=== PATIENT | female | born 1985 | race Caucasian/White ===

== ENCOUNTER 2016-08-31 09:12 | Inpatient (IN) | payer MEDICAID ==
[~2016-08-31] VITALS: Ht 160 cm; Wt 67.4 kg
[2016-08-31] MEDS ORDERED: LACTATED RINGER'S 1,000 ML IV SCH ×2 (09:56→11:51)
[2016-08-31 09:57] VITALS: Ht 160 cm; Wt 67.4 kg
[2016-08-31 09:58] VITALS: BP 113/64; PULSE 66; RESP 20
--- NOTE | 2016-08-31 10:32 | RADRPT ---
PROCEDURE: OB ultrasound for biophysical profile CLINICAL INDICATION: Contractions TECHNIQUE: Multiple sonographic images of the pelvis were obtained. Transabdominal views of the g ravid uterus are available for review. The images were reviewed on a PACS workstation. COMPARISON: None FINDINGS: breathing movement = 2/2 tone = 2/2 motion = 2/2 NICK = 2/2 NICK = 11.0 cm Single live intrauterine with cardiac activity of 146 bpm. position is cephal ic. The placenta is anterior. IMPRESSION: 1. Single live intrauterine gestation. 2. Biophysical profile = 8. 3. NICK = 11.0 cm. RPTAT: HH .Opal Navarrete MD, MD Date Time Electronically viewed and signed by .Opal Navarrete MD, on 08/31/2016 10:32 .G/
[2016-08-31] MEDS ORDERED: MAGNESIUM SULFATE 20 GM/500 ML 500 ML IV SCH (10:56)
[2016-08-31] MEDS ORDERED: ONDANSETRON 4 MG INJ IV PRN (11:00)
[2016-08-31] MEDS ORDERED: MAGNESIUM SULFATE 4 GM/100 ML 100 ML IV ONE (11:00)
[2016-08-31] MEDS ORDERED: ACETAMINOPHEN 325 MG TAB PO PRN ×2 (11:00→15:00)
[2016-08-31] MEDS ORDERED: BETAMET NA PHOS/AC(6 MG/ML) 5ML INJ IM SCH ×2 (11:00)
[2016-08-31] MEDS ORDERED: AMPICILLIN 2 GM/NS (PMX) 100 ML IV ONE (11:00)
[2016-08-31] MEDS ORDERED: BUTORPHANOL 2 MG INJ IV PRN ×2 (11:30)
[2016-08-31 11:40] LABS: ADD SCAN DIFF NO
--- NOTE | 2016-08-31 11:43 | TRIAGE ---
OB Triage Datetime Report Generated by CPN: 08/31/2016 11:42 Datetime: 08/31/2016 11:08 Stage of : Antepartum Labor Evaluation Frequency: 3-4 Monitor Mode: External Duration (sec)2399: 50-90 Quality: Strong Pattern: Normal: <= 5 Contractions in 10 Minutes Resting Tone [place]: Relaxed Heart Rate FHR Baseline Rate: 145 Monitor Mode: External US Variability: Moderate 6-25 bpm Accelerations: 15X15 Decelerations: None Category: Category I Comments: NST REACTIVE FOR GESTATIONAL AGE Datetime: 08/31/2016 10:38 Vaginal Exam Dilatation (cms): 2.5 Effacement (%): 80 Station: -1 Exam By: [email or web address] Vaginal Bleeding: Normal Show Cervix, Consistency: Soft Datetime: 08/31/2016 09:43 Labor Evaluation Frequency: 3 Monitor Mode: External Duration (sec)2399: 50-80 Quality: Moderate Pattern: Normal: <= 5 Contractions in 10 Minutes Resting Tone [place]: Relaxed Heart Rate FHR Baseline Rate: 135 Monitor Mode: External US Variability: Moderate 6-25 bpm Accelerations: 15X15 Decelerations: None Category: Category I Datetime: 08/31/2016 09:28 Maternal Assessment Level of Consciousness: Fully Conscious DTR's/Clonus: DTRs 2+; No Clonus Headache: Denies Blurred Vision: No Respiratory Effort: Unlabored; Regular Rhythm; Equal Expansion Breath Sounds, Left: Clear and Equal Breath Sounds, Right: Clear and Equal Nausea/Vomiting: Denies RUQ Epigastric Pain: Denies Facial Edema: None Fall Risk Assessment History of Falling: (0) No Secondary Diagnosis: (0) No Ambulatory Aid: (0) Bedrest/Nurse Assist IV Therapy: (0) No Gait: (0) Normal/Bedrest/Immobile Mental Status: (0) Oriented to Own Ability Fall Score: 0 Fall Risk Score Definition: No Risk: No action required Datetime: 08/31/2016 09:27 Stage of : OB Triage Maternal Assessment Level of Consciousness: Fully Conscious DTR's/Clonus: DTRs 2+; No Clonus Headache: Denies Blurred Vision: No Respiratory Effort: Unlabored; Regular Rhythm; Equal Expansion Breath Sounds, Left: Clear and Equal Breath Sounds, Right: Clear and Equal Nausea/Vomiting: Denies RUQ Epigastric Pain: Denies Lower Extremities Edema: None Degree: None Upper Extremities Edema: None Degree: None Facial Edema: None Temperature Route: Axillary Fall Risk Assessment History of Falling: (0) No Secondary Diagnosis: (0) No Ambulatory Aid: (0) Bedrest/Nurse Assist IV Therapy: (0) No Gait: (0) Normal/Bedrest/Immobile Mental Status: (0) Oriented to Own Ability Fall Score: 0 Fall Risk Score Definition: No Risk: No action required Datetime: 08/31/2016 09:26 Time of Arrival: 08/31/2016 09:10 EGA: 34.1 Arrived By: Ambulatory Arrived From: Home Chief Complaint: UC'S SINCE 0800 Movement: Present Contractions: Regular Time Contractions Began: 08/31/2016 08:00 Contractions: 2-3 Rupture of Membranes: Denies Vaginal Bleeding: None Vaginal Discharge: Denies Recent Sexual Intercouse: Denies Abdominal Trauma: Not Applicable Patient Complaints: Contractions Time Provider Notified: 08/31/2016 09:53 Provider Notified: DR. CRUZ Initial Plan: NST AND CALL
[2016-08-31 11:46] LABS: BASOPHILS % 0.2 % (0.0-2.0); EOSINOPHILS # 0.1 10^3/ul (0.0-0.5); EOSINOPHILS % 0.5 % (0.0-7.0); HEMATOCRIT 35.9 % (37.0-47.0); HEMOGLOBIN 12.2 g/dl (12.0-16.0); LYMPHOCYTES # 1.3 10^3/ul (0.8-2.9); LYMPHOCYTES % 13.5 % (15.0-51.0); MEAN CORPUSCULAR HEMOGLOBIN 30.7 pg (29.0-33.0); MEAN CORPUSCULAR VOLUME 90.2 fl (82.0-101.0); MEAN PLATELET VOLUME 12.3 fl (7.4-10.4); MONOCYTE # 0.6 10^3/ul (0.3-0.9); MONOCYTES % 5.7 % (0.0-11.0); NEUTROPHIL # 7.7 10^3/ul (1.6-7.5); NEUTROPHILS % 79.6 % (39.0-77.0); PLATELET COUNT 147 10^3/UL (140-415); RED BLOOD COUNT 3.98 10^6/ul (4.20-5.40); RED CELL DISTRIBUTION WIDTH 12.7 % (11.5-14.5); WHITE BLOOD COUNT 9.6 10^3/ul (4.8-10.8)
[2016-08-31] MEDS ORDERED: LIDOCAINE 1% (MPF) 30 ML INJ ONE (11:55)
[2016-08-31] MEDS ORDERED: OXYTOCIN 30 UNITS/LR 500 ML IV SCH ×2 (12:00)
[2016-08-31] MEDS ORDERED: METHYLERGONOVINE 0.2 MG INJ IM PRN ×2 (12:00→15:00)
[2016-08-31] MEDS ORDERED: OXYTOCIN 30 UNITS/LR 500 ML IV PRN ×2 (12:00→15:00)
[2016-08-31] MEDS ORDERED: MISOPROSTOL 200 MCG TAB PR PRN ×2 (12:00→15:00)
[2016-08-31] MEDS ORDERED: LIDOCAINE 1% (MPF) 30 ML INJ INJ PRN (12:00)
[2016-08-31] MEDS ORDERED: CARBOPROST 250 MCG INJ IM PRN ×2 (12:00→15:00)
[2016-08-31] MEDS ORDERED: IBUPROFEN 600 MG TAB PO PRN (12:00)
[2016-08-31] MEDS ORDERED: PRENAT PO (12:22)
--- NOTE | 2016-08-31 12:25 | QN ---
Documentation Comment 31 years old with IUP at 34 weeks and 1 day with care with Dr. Rivero. presented with contractions in triage. She was initally 3 cm and rapidly progresssed to 8 cm and 100 % when I was called. I was called to evaluate since the nursing staff felt a soft area at the cevix . Questionable for placenta Attended to patient's bedside. Complaining of contractions and pain. Declined IV pain medication quick bedside ultrasound performed. Vertex presentation. Placenta fundal anterior. Speculum examination: Bulging bag of water noted. No clear evidence of placenta noted. exam 8/100%./0 NST: Category [address] Dr. ary peters primary glazier artist is on her way. Patient received a dose of steroid Due to advanced cervical dilatation magnesium that was a started stopped. Ampicillin started immediately., NICU was notified. records reviewed. Dating good by LMP consistent with 30 weeks ultrasound. Patient had good care. There is no Antepartum complication. Anticipate Primary glazier artist it is on her way to perform the delivery We will continue to standby EMILIA CEBALLOS MD Aug 31, 2016 12:25
[2016-08-31 12:30] LABS: INR 0.9; PARTIAL THROMBOPLASTIN TIME 26.7 Sec (25.0-35.0); PROTIME 12.1 Sec (12.2-14.2); PT RATIO 0.9
--- NOTE | 2016-08-31 12:44 | HP ---
Date/Time of Note Date/Time of Note DATE: 08/31/16 TIME: 12:40 OB - History Hx of Present Chief Complaint: contractions Estimated Due Date: Oct 11, 2016 : 3 Para: 1 Spontaneous : 1 Therapeutic : 1 Care: Good Care Ultrasounds: Normal mid trimester US Obstetrical Complications: None Medical Complications: None Past Family/Social History * Past Medical, Surgical, Family and Obstetric Histories reviewed from chart. GBS Status: Unknown OB Admission Exam Vital Signs Vital Signs Vital Signs Date Time Temp Pulse Resp B/P Pulse Ox O2 Delivery O2 Flow Rate FiO2 08/31/16 09:58 97.8 66 20 113/64 99 Room Air Physical Exam HEENT: WNL Heart: Rhythm Normal Lungs: Clear Abdomen: WNL Extremities: Normal Cervical Dilatation: 3cm Effacement: 75% Station: -1 Membranes: Intact Heart Rate: 130's Accelerations: Accelerations Present Decelerations: No Decelerations Varibility: Moderate Last 72 hours Lab Results CBC & BMP 08/31/16 10:45 OB Assessment/Plan Reason for admission: labor Plan: Other (Admit, tocolysis with magnesium sulfate attewpted, however, patient progressed rapidly. Expect .) JIL CRUZ MD Aug 31, 2016 12:44
--- NOTE | 2016-08-31 12:47 | LDN ---
Date/Time of Note Date/Time of Note DATE: 08/31/16 TIME: 12:45 Delivery Summary Weeks of Gestation 34 weeks and 1 day Placenta Delivered: Spontaneously Meconium: none Episiotomy: No Perineal laceration: 0 Anesthesia type: None Estimated blood loss: 100 Sponge & Needle done & correct: Yes All needle counts correct: Yes Any foreign bodies felt in the: No Problems: Infant Delivery Information Sex Infant Sex: male Apgars 1 Minute: 9 5 Minute: 9 Suctioning Nose & mouth suctioned at [place]: Yes Delee suction performed: No Umbilical Cord Cord presentations: no nuchal cord Cord Blood was obtained: Yes Mother & Baby Disposition Disposition Mom transferred to: Other () Baby to NICU: Yes JIL CRUZ MD Aug 31, 2016 12:47
[2016-08-31 13:55] VITALS: BP 107/59; PULSE 70; RESP 18
[2016-08-31 14:33] LABS: ADD UMIC YES; UR ASCORBIC ACID NEGATIVE (NEGATIVE); UR BILIRUBIN (Dip) NEGATIVE (NEGATIVE); UR BLOOD (Dip) NEGATIVE (NEGATIVE); UR CLARITY SLIGHTLY CLOUDY (CLEAR); UR COLOR YELLOW (YELLOW); UR GLUCOSE (Dip) NEGATIVE (NEGATIVE); UR KETONES (Dip) NEGATIVE (NEGATIVE); UR LEUKOCYTE ESTERASE (Dip) 2+ Leu/ul (NEGATIVE); UR NITRITE (Dip) NEGATIVE (NEGATIVE); UR RBC 0 /HPF (0-5); UR SPECIFIC GRAVITY (Dip) 1.011 (1.003-1.030); UR SQUAMOUS EPITHELIAL CELL MODERATE /HPF (FEW); UR TOTAL PROTEIN (Dip) NEGATIVE (NEGATIVE); UR UROBILINOGEN (Dip) NEGATIVE (NEGATIVE)
[2016-08-31] MEDS ORDERED: LACTATED RINGER'S 1,000 ML IV* SCH (14:41)
[2016-08-31 14:59] LABS: BARBITURATES Negative (NEGATIVE); BENZODIAZEPINES Negative (NEGATIVE); CANNABINOIDS Negative (NEGATIVE); COCAINE Negative (NEGATIVE); OPIATES Negative (NEGATIVE)
[2016-08-31] MEDS ORDERED: BENZOCAINE 20% 56 ML SPRAY TOP PRN (15:00)
[2016-08-31] MEDS ORDERED: WITCH HAZEL/GLYCERIN PAD PR PRN (15:00)
[2016-08-31] MEDS ORDERED: AMPICILLIN 1 GM/NS (PMX) 50 ML IV SCH (15:00)
[2016-08-31] MEDS ORDERED: DIBUCAINE 1% 30 GM OINT PR PRN (15:00)
[2016-08-31] MEDS ORDERED: ACETAMINOPHEN/CODEINE #3 TAB PO PRN (15:00)
[2016-08-31] MEDS: LACTATED RINGER'S 1,000 ML IV SCH ×2 (16:34→18:56)
[2016-08-31 16:35] VITALS: BP 109/65; PULSE 75; RESP 18
[2016-08-31] MEDS: IBUPROFEN 600 MG TAB PO SCH ×2 (16:47→23:04)
[2016-08-31] MEDS ORDERED: IBUPROFEN 600 MG TAB PO SCH (18:00)
[2016-08-31 20:00] VITALS: BP 113/66; PULSE 70; RESP 18
[2016-08-31] MEDS: SENNA/DOCUSATE NA (8.6MG/50MG) TAB PO SCH (21:32)
[2016-09-01 00:03] VITALS: BP 106/64; PULSE 68; RESP 17
[2016-09-01 04:00] VITALS: BP 90/55; PULSE 74; RESP 16
[2016-09-01] MEDS: IBUPROFEN 600 MG TAB PO SCH ×4 (05:36→23:42)
[2016-09-01 07:58] LABS: ADD SCAN DIFF NO
[2016-09-01 08:15] LABS: BASOPHILS % 0.2 % (0.0-2.0); EOSINOPHILS % 0.1 % (0.0-7.0); HEMATOCRIT 30.8 % (37.0-47.0); HEMOGLOBIN 10.3 g/dl (12.0-16.0); LYMPHOCYTES # 1.3 10^3/ul (0.8-2.9); LYMPHOCYTES % 7.1 % (15.0-51.0); MEAN CORPUSCULAR HEMOGLOBIN 30.3 pg (29.0-33.0); MEAN CORPUSCULAR HGB CONC 33.4 g/dl (32.0-37.0); MEAN CORPUSCULAR VOLUME 90.6 fl (82.0-101.0); MEAN PLATELET VOLUME 11.7 fl (7.4-10.4); MONOCYTE # 0.9 10^3/ul (0.3-0.9); NEUTROPHIL # 15.6 10^3/ul (1.6-7.5); NEUTROPHILS % 87.2 % (39.0-77.0); PLATELET COUNT 137 10^3/UL (140-415); RED CELL DISTRIBUTION WIDTH 12.9 % (11.5-14.5); WHITE BLOOD COUNT 17.9 10^3/ul (4.8-10.8)
[2016-09-01 08:40] VITALS: BP 103/59; PULSE 18; RESP 18
[2016-09-01] MEDS ORDERED: MULTIVIT/MIN/FOLATE/IRON/PREN TAB PO SCH (09:00)
[2016-09-01] MEDS ORDERED: FERROUS SULFATE (EC) 325 MG TAB PO SCH (09:00)
[2016-09-01] MEDS: SENNA/DOCUSATE NA (8.6MG/50MG) TAB PO SCH ×2 (09:05→23:42)
[2016-09-01 16:05] VITALS: BP 102/57; PULSE 66; RESP 14
--- NOTE | 2016-09-01 19:12 | QN ---
Documentation Comment No complaint Afebrile VSS Fundus Firm Lochia scant PPD #1 Stable Continue present care. JIL CRUZ MD Sep 01, 2016 19:12
[2016-09-01 20:48] VITALS: BP 103/61; PULSE 74; RESP 74
[2016-09-02 04:20] VITALS: BP 105/69; PULSE 65; RESP 19
[2016-09-02] MEDS: IBUPROFEN 600 MG TAB PO SCH ×3 (05:47→17:48)
[2016-09-02 07:59] LABS: ADD SCAN DIFF NO
[2016-09-02 08:00] VITALS: BP 118/77; PULSE 77; RESP 18
[2016-09-02 08:06] LABS: BASOPHILS % 0.3 % (0.0-2.0); EOSINOPHILS # 0.2 10^3/ul (0.0-0.5); EOSINOPHILS % 1.3 % (0.0-7.0); HEMATOCRIT 30.8 % (37.0-47.0); LYMPHOCYTES % 16.6 % (15.0-51.0); MEAN CORPUSCULAR HEMOGLOBIN 29.7 pg (29.0-33.0); MEAN CORPUSCULAR HGB CONC 32.5 g/dl (32.0-37.0); MEAN CORPUSCULAR VOLUME 91.4 fl (82.0-101.0); MEAN PLATELET VOLUME 11.8 fl (7.4-10.4); MONOCYTE # 0.7 10^3/ul (0.3-0.9); MONOCYTES % 5.5 % (0.0-11.0); NEUTROPHIL # 9.1 10^3/ul (1.6-7.5); NEUTROPHILS % 75.5 % (39.0-77.0); PLATELET COUNT 139 10^3/UL (140-415); RED BLOOD COUNT 3.37 10^6/ul (4.20-5.40); RED CELL DISTRIBUTION WIDTH 13.1 % (11.5-14.5)
[2016-09-02] MEDS: SENNA/DOCUSATE NA (8.6MG/50MG) TAB PO SCH (08:19)
[2016-09-02] MEDS ORDERED: DIPHTH/TET/ACEL PERTUSS (ADULT) 0.5 ML VIAL IM* ONE (09:00)
[2016-09-02 16:00] VITALS: BP 99/62; PULSE 56; RESP 18
--- NOTE | 2016-09-02 19:56 | DS ---
Date/Time of Note Date/Time of Note DATE: 09/02/16 TIME: 19:55 Obstetrical Discharge Record Final Diagnosis Final Diagnosis: delivered Vaginal Delivery Obstetrical Delivery: Spontaneous Complications Labor Tocolytics: Magnesium Sulfate Condition on Discharge Physical Assessment Voiding: Yes Bowel Movement: Yes Breast: Soft, non-tender Fundus: Firm Calf Tenderness: No Patient Condition: Stable JIL CRUZ MD Sep 02, 2016 19:56
== END 2016-09-02 20:35 | disposition home or self-care (01) | DRG 775 ==
LOC: OBT 09:12 → L-D 09:12 → OBG 10:45 → OBT 10:45 → L-D 11:11 → PP1 14:00 → UNDODISIN 09-02 19:30
PROVIDERS: ADMIT Obstetrics & Gynecology; ATTEND Obstetrics & Gynecology
PROC: 10E0XZZ Delivery of Products of Conception, External Approach (ICD-10-PCS; principal; 2016-08-31)
DX: O60.14X0 Preterm labor third trimester with preterm delivery third trimester, not applicable or unspecified (principal); Z37.0 Single live birth; Z3A.34 34 weeks gestation of pregnancy
CPT/HCPCS: 36415; 76818; 80307; 81001; 85025; 85610; 85730; 86592; 86900; 86901; 87086; 87340; 88307; 90715; 99464; G0463; J0290; J0595; J0702; J2590; J3475; J7120

== ENCOUNTER 2018-04-30 12:31 | Inpatient (IN) | payer MEDICAID ==
[~2018-04-30] VITALS: Ht 160 cm; Wt 73.0 kg
[~2018-04-30 12:31] MED LIST: PRENAT PO
[2018-04-30 13:00] VITALS: Ht 160 cm; Wt 73.0 kg
[2018-04-30] MEDS ORDERED: LIDOCAINE 1% (MPF) 30 ML INJ INJ PRN (13:00)
[2018-04-30] MEDS ORDERED: CARBOPROST 250 MCG INJ IM PRN (13:00)
[2018-04-30] MEDS ORDERED: BUTORPHANOL 2 MG INJ IV PRN (13:00)
[2018-04-30] MEDS ORDERED: OXYTOCIN 30 UNITS/LR 500 ML IV SCH ×2 (13:00)
[2018-04-30] MEDS ORDERED: IBUPROFEN 600 MG TAB PO PRN (13:00)
[2018-04-30] MEDS ORDERED: MISOPROSTOL 200 MCG TAB PR PRN (13:00)
[2018-04-30] MEDS ORDERED: METHYLERGONOVINE 0.2 MG INJ IM PRN (13:00)
[2018-04-30] MEDS ORDERED: OXYTOCIN 30 UNITS/LR 500 ML IV PRN (13:00)
[2018-04-30] MEDS: LACTATED RINGER'S 1,000 ML IV SCH ×2 (13:24→20:50)
[2018-04-30] MEDS ORDERED: GUAIFENESIN/DM 5ML CUP PO PRN ×2 (15:30→18:00)
[2018-04-30] MEDS: DEXTROSE 5%-LR 1,000 ML IV SCH (17:25)
--- NOTE | 2018-04-30 18:46 | HP ---
Date/Time of Note Date/Time of Note DATE: 04/30/18 TIME: 18:41 OB - History Hx of Present Chief Complaint: referred from NST Estimated Due Date: May 15, 2018 : 4 Para: 2 Spontaneous : 1 Therapeutic : 0 Care: Good Care Ultrasounds: Normal mid trimester US Obstetrical Complications: Gestational Diabetes Past Family/Social History * Past Medical, Surgical, Family and Obstetric Histories reviewed from chart. GBS Status: Negative OB Admission Exam Physical Exam HEENT: WNL Heart: Rhythm Normal Lungs: Clear, Equal Abdomen: WNL Extremities: Normal Reflexes: Normal Cervical Dilatation: 3cm Effacement: 75% Station: -1 Membranes: Intact Heart Rate: 120's Accelerations: Accelerations Present Decelerations: Variable Decelerations Varibility: Moderate Last 72 hourBlood Glucose Bedside Glucose - 72 Hours Test 04/30/18 17:28 Bedside Glucose 90 mg/dL (70-220) Last 72 hours Lab Results CBC & BMP 04/30/18 13:00 OB Assessment/Plan Other Assessment: Early labor heart deceleration noted in NST clinic Plan: Expectant Management JIL CRUZ MD Apr 30, 2018 18:46
[2018-05-01] MEDS: LACTATED RINGER'S 1,000 ML IV SCH ×2 (00:12→10:21)
[2018-05-01] MEDS ORDERED: FENTAnyl 2MCG/ML-ROPIV 0.2% 100 ML ONE (01:01)
--- NOTE | 2018-05-01 01:31 | PREAC ---
Date/Time of Note Date/Time of Note DATE: 05/01/18 TIME: 01:30 Anesthesia Eval and Record Evaluation Time Pre-Procedure Interview DATE: 05/01/18 TIME: 01:30 Age 32 Sex female NPO: 8 hrs Preoperative diagnosis Labor Pain Planned procedure Labor Epidural Past Medical History Past Medical History: Includes Heme: Anemia : : (1), Para: (0), Gestational age: (38) Surgery & Anesthesia Issues No known issue Meds Anticoagulation: No Beta Janice within 24 hr: No Reason Beta Janice not given: Pt. not on B-Janice Reported Medications Multivit/Min/Fol Ac/Iron/Pren* ( S*) 1 Tab Tab, 1 TAB PO DAILY, TAB 08/31/16 Current Medications Lactated Ringer's 1,000 ml @ 125 mls/hr Q8H IV Last administered on 05/01/18at 00:12; Admin Dose 125 MLS/HR; Start 04/30/18 at 12:50 Butorphanol Tartrate (Stadol) 2 mg Q2H PRN IV .PAIN; Start 04/30/18 at 13:00 Lidocaine (Xylocaine 1% (Mpf)) 30 ml ONCE PRN INJ .EPISIOTOMY; Start 04/30/18 at 13:00 Oxytocin/Lactated Ringer's 500 ml @ 500 mls/hr ONCE POST IV ; Start 04/30/18 at 13:00 Oxytocin/Lactated Ringer's 500 ml @ 125 mls/hr POST IV ; Start 04/30/18 at 13:00 Ibuprofen (Motrin) 600 mg ONCE PRN PO .PAIN 1-5; Start 04/30/18 at 13:00 Oxytocin/Lactated Ringer's 500 ml @ 0 mls/hr ONCE PRN IV .VAGINAL BLEEDING; Start 04/30/18 at 13:00 Methylergonovine Maleate (Methergine) 0.2 mg ONCE PRN IM .VAGINAL BLEEDING; Start 04/30/18 at 13:00 Carboprost Tromethamine (Hemabate) 250 mcg ONCE PRN IM .VAGINAL BLEEDING; Start 04/30/18 at 13:00 Misoprostol (Cytotec) 1,000 mcg ONCE PRN VA .VAGINAL BLEEDING; Start 04/30/18 at 13:00 Guaifenesin/ Dextromethorphan (Robitussin Dm Liquid Cup) 10 ml Q4H PRN PO COUGH; Start 04/30/18 at 15:30 Dextrose/Lactated Ringer's 1,000 ml @ 125 mls/hr Q8H IV Last administered on 04/30/18at 17:25; Admin Dose 125 MLS/HR; Start 04/30/18 at 16:00 Guaifenesin/ Dextromethorphan (Robitussin Dm Liquid Cup) 10 ml Q4H PRN PO COUGH; Start 04/30/18 at 18:00 Meds reviewed: Yes Allergies Coded Allergies: No Known Allergy (Unverified , 11/03/12) Allergies Reviewed: Yes Labs/Studies Labs Reviewed: Reviewed by anesthesiologist Result Diagram: 04/30/18 1300 04/30/18 1300 Laboratory Tests 04/30/18 13:00 Blood Bank Test 04/30/18 13:00 Antibody Screen NEGATIVE Blood Type A POSITIVE Rh Immune Globulin Candidate NO test: Positive Studies: ECG (n/a), CXR (n/a) Pre-procedure Exam Airway: Adequate mouth opening, Adequate thyromental dist Mallampati: Mallampati II Teeth: Normal Lung: Normal Heart: Normal ASA Physical Status ASA physical status: 2 Emergency: None Planned Anesthetic Neuraxial: Epidural Planned Pain Management Epidural Pre-operative Attestations Prior to commencing anesthesia and surgery, the patient was re-evaluated, there was verification of: *The patient's identity *The results of appropriate recent lab work and preoperative vital signs *The above evaluation not changing prior to induction *Anesthetic plan, risk benefits, alternative and complications discussed with patient/family; questions answered; patient/family understands, accepts and wishes to proceed. ENRICO LANDA MD May 01, 2018 01:31
--- NOTE | 2018-05-01 01:33 | PAC ---
Date/Time of Note Date/Time of Note DATE: 05/01/18 TIME: 01:32 Post-Anesthesia Notes Post-Anesthesia Note Last documented vital signs T:98.1 Activity: WNL Respiratory function: WNL Cardiovascular function: WNL Mental status: Baseline Pain reasonably controlled: Yes Hydration appropriate: Yes Nausea/Vomiting absent: Yes ENRICO LANDA MD May 01, 2018 01:33
[2018-05-01] MEDS ORDERED: NALOXONE (0.4 MG/ML) INJ IV PRN (02:00)
[2018-05-01] MEDS: FENTAnyl 2MCG/ML-ROPIV 0.2% 100 ML BAG EPI SCH ×2 (02:06→10:23)
[2018-05-01] MEDS: DEXTROSE 5%-LR 1,000 ML IV SCH ×3 (07:21→17:30)
[2018-05-01] MEDS ORDERED: OXYTOCIN 30 UNITS/LR 500 ML IV SCH (12:00)
--- NOTE | 2018-05-01 17:48 | LDN ---
Date/Time of Note Date/Time of Note DATE: 05/01/18 TIME: 17:46 Delivery Summary Weeks of Gestation 38 weeks Placenta Delivered: Spontaneously Meconium: none Episiotomy: No Anesthesia type: Epidural Estimated blood loss: 200 Sponge & Needle done & correct: Yes All needle counts correct: Yes Any foreign bodies felt in the: No Delivery Information Sex Infant Sex: female Apgars 1 Minute: 9 5 Minute: 9 Suctioning Nose & mouth suctioned at [place]: No Delee suction performed: No Umbilical Cord Umbilical cord with: 3 Vessels Cord presentations: nuchal cord Nuchal cord present X: 1 Cord Blood was obtained: Yes Mother & Baby Disposition Disposition Mom & Baby to Maternity; Good: Yes JIL CRUZ MD May 01, 2018 17:48
[2018-05-01 20:20] VITALS: BP 124/67; PULSE 81; RESP 18
[2018-05-01] MEDS: LACTATED RINGER'S 1,000 ML IV* SCH (21:05)
[2018-05-01] MEDS ORDERED: METHYLERGONOVINE 0.2 MG INJ IM PRN (21:30)
[2018-05-01] MEDS ORDERED: OXYTOCIN 30 UNITS/LR 500 ML IV PRN (21:30)
[2018-05-01] MEDS ORDERED: BENZOCAINE 20% 56 ML SPRAY TOP PRN (21:30)
[2018-05-01] MEDS ORDERED: CARBOPROST 250 MCG INJ IM PRN (21:30)
[2018-05-01] MEDS ORDERED: DIBUCAINE 1% 30 GM OINT TOP PRN (21:30)
[2018-05-01] MEDS ORDERED: ACETAMINOPHEN 325 MG TAB PO PRN (21:30)
[2018-05-01] MEDS ORDERED: MISOPROSTOL 200 MCG TAB PR PRN (21:30)
[2018-05-01] MEDS ORDERED: WITCH HAZEL/GLYCERIN PAD PR PRN (21:30)
[2018-05-01] MEDS: HYDROCODONE/APAP (5/325) TAB PO PRN (22:00)
[2018-05-01] MEDS: IBUPROFEN 600 MG TAB PO SCH (23:32)
[2018-05-01 23:37] VITALS: BP 121/68; PULSE 89; RESP 18
[2018-05-02 04:00] VITALS: BP 112/66; PULSE 65; RESP 18
[2018-05-02] MEDS: LACTATED RINGER'S 1,000 ML IV* SCH (04:41)
[2018-05-02] MEDS: IBUPROFEN 600 MG TAB PO SCH ×3 (05:18→18:24)
[2018-05-02 08:15] VITALS: BP 100/58; PULSE 68; RESP 18
[2018-05-02] MEDS: SENNA/DOCUSATE NA (8.6MG/50MG) TAB PO SCH ×2 (08:20→20:40)
[2018-05-02] MEDS: HYDROCODONE/APAP (5/325) TAB PO PRN (08:21)
[2018-05-02 12:15] VITALS: BP 95/62; PULSE 76; RESP 16
[2018-05-02 14:10] VITALS: BP 117/63; PULSE 72; RESP 18
--- NOTE | 2018-05-02 19:47 | QN ---
Documentation Comment No complaint Afebrile VSS Fundus firm Lochia scant PPD #1 Stable Continue present care. JIL CRUZ MD May 02, 2018 19:47
[2018-05-02 19:50] VITALS: BP 115/74; PULSE 70
[2018-05-03] MEDS: IBUPROFEN 600 MG TAB PO SCH ×3 (00:15→12:04)
[2018-05-03 03:47] VITALS: BP 124/78; PULSE 62; RESP 18
--- NOTE | 2018-05-03 07:50 | DS ---
Date/Time of Note Date/Time of Note DATE: 05/03/18 TIME: 07:50 Obstetrical Discharge Record Final Diagnosis Final Diagnosis: Term delivered Vaginal Delivery Obstetrical Delivery: Spontaneous Complications Other (hypertension ) Augmentation: Yes Induction: Yes Rupture of Membranes: No Condition on Discharge Physical Assessment Voiding: Yes Bowel Movement: Yes Breast: Soft, non-tender, Filling Fundus: Firm Abdomen and Incision: soft, not tender Calf Tenderness: No Patient Condition: Good GABBI OCONNOR MD May 03, 2018 07:50
[2018-05-03 08:00] VITALS: BP 110/68; PULSE 68; RESP 18
[2018-05-03] MEDS: SENNA/DOCUSATE NA (8.6MG/50MG) TAB PO SCH (08:32)
[2018-05-03] MEDS ORDERED: DIPHTH/TET/ACEL PERTUSS (ADULT) 0.5 ML VIAL IM* ONE (09:00)
[2018-05-03] MEDS ORDERED: MEASLES,MUMPS,RUBELLA VACCINE INJ SC* ONE (09:00)
[2018-05-03] MEDS ORDERED: INFLUENZA VIRUS VACCINE 0.5 ML (DISPENSING) IM* ONE (10:00)
--- NOTE | 2018-05-07 14:31 | NSTRPT ---
NST Information Datetime Report Generated by CPN: 05/07/2018 14:31 Datetime: 04/30/2018 10:18 NST Information EGA: 37.6 Test Number: 4 Time on Monitor: 04/30/2018 10:52 Time off Monitor: 04/30/2018 11:45 NST Duration (Min): 53 Reason for NST: Diabetes Mellitus; Low GAEL; Other Reason for NST Other: A1DM Test and Monitor Explained: Monitor Explained; Test Explained; Verbalized Understanding Pulse: 76 Resp: 18 SBP: 113 DBP: 65 Test Evaluation NST Interventions: Acoustic Stimulation Patient States Movement: Present Contraction Frequency: X3-DENIES FEELING FHR Baseline : 140 Variability: Moderate 6-25bpm Accelerations: 15X15 Decelerations: Late; Variable FHR Category: Category II NST Results: Non-Reactive Provider Notified: Dr Dey _ Dr Rivero Comments: To u/s-NICK 18.8 CM, CEPHALIC. FBS ON 04/29/18 WAS 98. TRACING PER DR DEY "NON-REACTIVE WITH VARIABLE DECEL WITH A LATE COMPONENT". DR DELSHAD NOTIFIED, PT SENT TO L_D FOR DELIVERY Electronically Signed By E-Signature: with User ID: [id number] Datetime: 04/26/2018 10:05 NST Information EGA: 37.2 NST Duration (Min): 23 Datetime: 04/23/2018 10:14 NST Information EGA: 36.6 NST Duration (Min): 26 Datetime: 04/19/2018 15:05 NST Information EGA: 36.2 NST Duration (Min): 31
== END 2018-05-03 13:30 | disposition home or self-care (01) | DRG 807 ==
LOC: L-D 12:31 → PP1 05-01 20:19
PROVIDERS: ADMIT Obstetrics & Gynecology; ATTEND Obstetrics & Gynecology
PROC: 10E0XZZ Delivery of Products of Conception, External Approach (ICD-10-PCS; principal; 2018-05-01)
DX: O24.429 Gestational diabetes mellitus in childbirth, unspecified control (principal); Z37.0 Single live birth; O76 Abnormality in fetal heart rate and rhythm complicating labor and delivery; O69.81X0 Labor and delivery complicated by cord around neck, without compression, not applicable or unspecified; Z3A.38 38 weeks gestation of pregnancy; Z23 Encounter for immunization
CPT/HCPCS: 62319; 80053; 81001; 82947; 82962; 84560; 85025; 85610; 85730; 86592; 86703; 86850; 86900; 86901; 87340; 90715; J2590; J3010; J7120; J7121